=== PATIENT | male | born 1995 | race African-American/Black ===

== ENCOUNTER 2017-11-24 14:42 | Emergency (ER) | payer OTHER ==
[2017-11-24 15:01] VITALS: BP 142/83
--- NOTE | 2017-11-24 15:20 | XRAY Preliminary Report ---
Exam: XR HAND 3 VIEW RT IMPRESSION: Fifth metacarpal fracture. [facility] SITE ID: [id number]
--- NOTE | 2017-11-24 15:31 | ED Physician Documentation ---
PD HPI UPPER EXT INJURY - Stated complaint Stated Complaint: R HAND INJ - Chief complaint Chief Complaint: Ext Problem - History obtained from History obtained from: Patient - History of Present Illness Location: Right, Hand Type of injury: Crush (caught in car door) Where injury occurred: Work Timing - onset: Yesterday Timing - details: Abrupt onset, Still present Worsened by: Moving, Palpating Associated symptoms: Swelling. No: Weakness, Numbness Similar symptoms before: Has not had sx before Recently seen: Not recently seen Review of Systems Skin: denies: Abrasion (s), Laceration (s) Neurologic: denies: Focal weakness, Numbness PD PAST MEDICAL HISTORY - Past Medical History Cardiovascular: None Respiratory: None Musculoskeletal: None - Present Medications Home Medications: Ambulatory Orders Medication Instructions Recorded Confirmed Ibuprofen [Motrin] 600 mg PO TID #25 tab 11/24/17 - Allergies Allergies/Adverse Reactions: Allergies Allergy/AdvReac Type Severity Reaction Status Date / Time No Known Drug Allergies Allergy Verified 11/24/17 15:00 PD ED PE NORMAL - Vitals Vital signs reviewed: Yes - General General: Alert and oriented X 3, No acute distress, Well developed/nourished - Derm Derm: Normal color, Warm and dry - Extremities Extremities: Other (right hand tender over 5th MC area with focal swelling. Able to flex finger without malrotation. Normal color and cap refill in fingers. ) - Neuro Neuro: No motor deficit, No sensory deficit Results - Vitals Vitals: Vital Signs - 24 hr 11/24/17 14:59 Temperature 36.5 C Heart Rate 77 Respiratory 14 Rate Blood Pressure 142/83 H O2 Saturation 100 Oxygen O2 Source Room air - Rads (name of study) right hand Radiology: Prelim report reviewed (5th MC fracture at neck, minimally angulated. ), EMP read contemporaneously Procedures - Splint (location) right hand Splint applied by: Nurse Type of splint: Fiberglass, Ulnar gutter Other: Patient tolerated well, No complications, Neurovascular intact PD MEDICAL DECISION MAKING - ED course Complexity details: reviewed results (5th MC fracture, minimally angulated), considered differential, d/w patient Departure - Departure Disposition: 01 Home, Self Care Clinical Impression: Crush injury of hand Qualifiers: Encounter type: initial encounter Laterality: right Qualified Code(s): S67.21XA - Crushing injury of right hand, initial encounter Fracture of fifth metacarpal bone Qualifiers: Encounter type: initial encounter Fracture type: closed Metacarpal location: neck Fracture alignment: nondisplaced Laterality: right Qualified Code(s): S62.366A - Nondisplaced fracture of neck of fifth metacarpal bone, right hand, initial encounter for closed fracture Condition: Stable Record reviewed to determine appropriate education?: Yes Instructions: ED Fx Boxer, ED Splint Care Fiberglass Follow-Up: [facility] [Provider Group] Prescriptions: Ibuprofen [Motrin] 600 mg PO TID #25 tab Comments: Keep the splint on the hand to protect it while its initially healing. He will need some protective support for about 4 weeks. Recheck with your primary care in 3-5 days after the swelling is gone down as the splint will not for quite as well and likely need replacing. Light use with that hand for 4 weeks. Ibuprofen 3 times a day and add Tylenol if needed. Call for follow-up appointment. Forms: Activity restrictions Discharge Date/Time: 11/24/17 15:57
--- NOTE | 2017-11-24 15:31 | XRAY Report ---
EXAM: RIGHT HAND RADIOGRAPHY EXAM DATE: 11/24/2017 03:14 PM. CLINICAL HISTORY: Pain since slamming the hand in car door 3 days ago. COMPARISON: None. TECHNIQUE: 3 views. FINDINGS: Bones: Acute transverse fracture distal metadiaphysis fifth metacarpal, 40 degree dorsal angulation a t the fracture site. Joints: Normal. No subluxations. Soft Tissues: Marked edema adjacent to the fracture. IMPRESSION: Fifth metacarpal fracture. [facility] Referring Provider Line: [phone] SITE ID: [id number]
[2017-11-24] MEDS ORDERED: IBUPROFEN 600 MG TABLET PO STA (15:44)
== END 2017-11-24 15:57 | disposition home or self-care (01) ==
LOC: ED 14:42
DX: S67.21XA Crushing injury of right hand, initial encounter (principal); S62.366A Nondisplaced fracture of neck of fifth metacarpal bone, right hand, initial encounter for closed fracture; W23.0XXA Caught, crushed, jammed, or pinched between moving objects, initial encounter; Y99.0 Civilian activity done for income or pay
CPT/HCPCS: 29125; 73130; 99283; A9270

== ENCOUNTER 2019-02-15 08:14 | Emergency (ER) | payer OTHER ==
[2019-02-15 08:35] VITALS: BP 170/85
[2019-02-15] MEDS ORDERED: METHOCARBAMOL 500 MG TABLET PO STA (09:00)
[2019-02-15] MEDS ORDERED: NAPROXEN 250 MG TABLET PO STA (09:00)
[2019-02-15] MEDS ORDERED: ACETAMINOPHEN 325 MG TABLET PO STA (09:00)
--- NOTE | 2019-02-15 09:28 | XRAY Report ---
Reason: dyspnea/ cough Procedure Date: 02/15/2019 Accession Number: [id number] / [id number] Procedure: XR - Chest 2 View X-Ray CPT Code: 94612 FULL RESULT: EXAM: CHEST RADIOGRAPHY EXAM DATE: 02/15/2019 09:09 AM. CLINICAL HISTORY: Dyspnea/ cough. COMPARISON: None. TECHNIQUE: 2 views. FINDINGS: Lungs/Pleura: No focal opacities evident. No pleural effusion. No pneumothorax. Normal volumes. Mediastinum: Heart and mediastinal contours are unremarkable. Other: None. IMPRESSION: Normal 2-view chest radiography. [facility]
--- NOTE | 2019-02-15 09:32 | ED Physician Documentation ---
PD HPI CHEST PAIN - Stated complaint Stated Complaint: CP/BACK PAIN - Chief complaint Chief Complaint: Back Pain - History obtained from History obtained from: Patient - History of Present Illness Timing - onset: How many days ago (4) Timing - onset during: Light activity Timing - duration: Days (4) Timing - details: Gradual onset (Noted his back hurting when he awoke from bed and has been hurting with range of motion and deep breathing over the last few days. He had been in a motel for work for an overnight and thought it was the different mattress. He is now back home however and still having pains with movement and breathing. He denies any numbness. He denies any injury change in activity or heavy lifting. The pain started in the mid thoracic back and is now into the sternal area.), Waxing and waning Quality: Aching, Pain Location: Upper back (feels started in back and now going to sternal chest area) Radiation: Back Improved by: Rest Worsened by: Exertion, Movement. No: Inspiration Associated symptoms: No: Shortness of air, Nausea, Feeling faint / dizzy, General Weakness, Palpitations, Cough Similar symptoms before: Has not had sx before Recently seen: Not recently seen Review of Systems Constitutional: denies: Fever, Chills Nose: denies: Rhinorrhea / runny nose, Congestion Throat: denies: Sore throat Cardiac: reports: Chest pain / pressure. denies: Palpitations Respiratory: denies: Dyspnea, Cough, Wheezing Skin: denies: Rash, Lesions Musculoskeletal: reports: Back pain. denies: Neck pain PD PAST MEDICAL HISTORY - Past Medical History Past Medical History: No Cardiovascular: None Respiratory: None Neuro: None Endocrine/Autoimmune: None Musculoskeletal: None - Past Surgical History Past Surgical History: No - Present Medications Home Medications: Ambulatory Orders Medication Instructions Recorded Confirmed Methocarbamol [Robaxin] 500 mg PO Q6H PRN #30 tablet 02/15/19 RX: Naproxen 500 mg PO BID #20 tablet 02/15/19 RX: Tramadol HCl 50 mg PO Q6H PRN #20 tablet 02/15/19 - Allergies Allergies/Adverse Reactions: Allergies Allergy/AdvReac Type Severity Reaction Status Date / Time No Known Drug Allergies Allergy Verified 02/15/19 08:35 - Living Situation Living Arrangement: reports: At home - Social History Does the pt smoke?: No Smoking Status: Never smoker Does the pt drink ETOH?: No Does the pt have substance abuse?: No - Family History Family history: reports: Non contributory. denies: CAD, Aortic dissection - Immunizations Immunizations are current?: Yes - POLST Patient has POLST: No PD ED PE NORMAL - Vitals Vital signs reviewed: Yes - General General: Alert and oriented X 3, No acute distress, Well developed/nourished - HEENT HEENT: Moist mucous membranes, Pharynx benign - Neck Neck: Supple, no meningeal sign, No adenopathy - Cardiac Cardiac: RRR, No murmur - Respiratory Respiratory: Clear bilaterally - Abdomen Abdomen: Normal bowel sounds, Soft - Back Back: No CVA TTP, No spinal TTP (but some tenderness mid scapular muscles. ) - Derm Derm: Normal color, Warm and dry, No rash Results - Vitals Vitals: Oxygen O2 Source Room air - EKG (time done) arrival Rhythm: NSR Annabella: Normal Intervals: Normal VT QRS: Normal Ischemia: Normal ST segments. No: ST elevation c/w ischemia, ST depression - Rads (name of study) chest xray Radiology: Prelim report reviewed (no acute process), See rad report PD MEDICAL DECISION MAKING - ED course Complexity details: considered differential (Likely musculoskeletal from back now into chest area. Will eval CXR, ECG, labs to ensure not other cause. ), d/w patient Departure - Departure Disposition: 01 Home, Self Care Clinical Impression: Acute thoracic back pain Qualifiers: Back pain laterality: midline Qualified Code(s): M54.6 - Pain in thoracic spine Condition: Stable Record reviewed to determine appropriate education?: Yes Instructions: ED Sprain Thoracic Spine Follow-Up: [facility] [Provider Group] Prescriptions: Methocarbamol [Robaxin] 500 mg PO Q6H PRN #30 tablet PRN Reason: Spasms RX: Naproxen 500 mg PO BID #20 tablet RX: Tramadol HCl 50 mg PO Q6H PRN #20 tablet PRN Reason: Pain Comments: Your EKG and chest x-ray are normal. This sounds like musculoskeletal pain. I would have you try the naproxen twice daily for the next 7 to 10 days with food. Add Robaxin muscle relaxant periodically 2-3 times a day to see if there is some muscular spasm or stiffness component. Add Tylenol or tramadol as needed for pain. Limited duty with no heavy lifting or heavy use for the next 2 to 3 days. Follow-up with your primary if not better over the next several days. Forms: Activity restrictions Discharge Date/Time: 02/15/19 09:45
== END 2019-02-15 09:45 | disposition home or self-care (01) ==
LOC: ED 08:14
DX: M54.6 Pain in thoracic spine (principal)
CPT/HCPCS: 71046; 93005; 99283; 99284; A9270

== ENCOUNTER 2019-12-29 03:55 | Emergency (ER) | payer OTHER ==
--- NOTE | 2019-12-29 04:02 | ED Physician Documentation ---
PD HPI DYSPNEA - Stated complaint Stated Complaint: SOA/WHEEZING - Chief complaint Chief Complaint: Resp - History obtained from History obtained from: Patient - History of Present Illness Timing - onset: How many hours ago (3) Timing - onset during: Sleep Timing - duration: Hours Timing - details: Abrupt onset, Constant Pain level max: 0 Pain level now: 0 Improved by: Rest Worsened by: Exertion Associated symptoms: Wheezing. No: Fever, Cough, Hemoptysis, Chest pain / discomfort, Palpitations, Bilateral edema, Unilateral edema Similar symptoms before: No diagnosis Recently seen: Not recently seen Review of Systems Constitutional: reports: Reviewed and negative Ears: reports: Ear pain, Drainage/discharge Nose: reports: Rhinorrhea / runny nose, Congestion, Epistaxis Throat: denies: Sore throat Cardiac: reports: Reviewed and negative Respiratory: reports: Dyspnea, Cough, Wheezing. denies: Hemoptysis GI: reports: Reviewed and negative Skin: denies: Rash Musculoskeletal: denies: Extremity swelling PD PAST MEDICAL HISTORY - Past Medical History Cardiovascular: None Respiratory: None Neuro: None Endocrine/Autoimmune: None Musculoskeletal: None - Past Surgical History Past Surgical History: No - Present Medications Home Medications: Ambulatory Orders Medication Instructions Recorded Confirmed Naproxen 500 mg PO BID #20 tablet 02/15/19 Tramadol HCl 50 mg PO Q6H PRN #20 tablet 02/15/19 methocarbamoL [Robaxin] 500 mg PO Q6H PRN #30 tablet 02/15/19 Albuterol Sulf [Ventolin Hfa 1 - 2 puffs INH Q4HR PRN #1 inhaler 12/29/19 Inhaler] predniSONE [Prednisone] 40 mg PO DAILY 3 Days #6 tablet 12/29/19 - Allergies Allergies/Adverse Reactions: Allergies Allergy/AdvReac Type Severity Reaction Status Date / Time No Known Drug Allergies Allergy Verified 12/29/19 03:58 - Social History Does the pt smoke?: No Smoking Status: Never smoker Does the pt drink ETOH?: No Does the pt have substance abuse?: No - Immunizations Immunizations are current?: Yes - POLST Patient has POLST: No PD ED PE NORMAL - Vitals Vital signs reviewed: Yes - General General: Alert and oriented X 3, No acute distress, Well developed/nourished, Other (wheezing audible standing at bedside) - Neck Neck: Supple, no meningeal sign - Cardiac Cardiac: RRR, No murmur, No gallop, No rub - Respiratory Respiratory: No respiratory distress - Abdomen Abdomen: Soft, Non tender - Derm Derm: Normal color, Warm and dry, No rash - Extremities Extremities: No edema PD ED PE EXPANDED - Cardiac Cardiac: Regular Rate, Regular Rhythm - Respiratory Respiratory: Wheezing, Decreased breath sounds (bilaerally all lung ortiz), Other (prolonged expiratory phase) Results - Vitals Vitals: Vital Signs - 24 hr 12/29/19 12/29/19 12/29/19 03:58 04:06 04:14 Temperature 36.3 C L Heart Rate 119 H 113 H 108 H Respiratory 26 H 26 H 16 Rate Blood Pressure 157/113 H 156/108 H O2 Saturation 96 96 12/29/19 12/29/19 04:30 05:00 Temperature Heart Rate 120 H 119 H Respiratory 22 20 Rate Blood Pressure 157/111 H 158/102 H O2 Saturation 99 99 Oxygen O2 Source Room air - Labs Labs: Laboratory Tests 12/29/19 12/29/19 12/29/19 04:17 04:17 04:17 WBC RBC Hgb Hct MCV MCH MCHC RDW Plt Count MPV Neut # (Auto) Lymph # (Auto) Hoke # (Auto) Eos # (Auto) Baso # (Auto) Absolute Nucleated RBC Nucleated RBC % D-Dimer 215.2 Sodium 137 Potassium 4.1 Chloride 101 Carbon Dioxide 25 Anion Gap 11.0 BUN 11 Creatinine 0.9 Estimated GFR (MDRD) 124 Glucose 108 H Calcium 9.5 Total Bilirubin 0.3 AST 28 ALT 59 Alkaline Phosphatase 65 B-Natriuretic Peptide 19 Total Protein 8.2 Albumin 4.5 Globulin 3.7 Albumin/Globulin Ratio 1.2 Lipase 32 12/29/19 05:10 WBC 9.7 RBC 5.33 Hgb 14.9 Hct 46.0 MCV 86.3 MCH 28.0 MCHC 32.4 RDW 12.5 Plt Count 304 MPV 9.1 Neut # (Auto) 5.7 Lymph # (Auto) 2.7 Hoke # (Auto) 1.0 Eos # (Auto) 0.2 Baso # (Auto) 0.1 Absolute Nucleated RBC 0.00 Nucleated RBC % 0.0 D-Dimer Sodium Potassium Chloride Carbon Dioxide Anion Gap BUN Creatinine Estimated GFR (MDRD) Glucose Calcium Total Bilirubin AST ALT Alkaline Phosphatase B-Natriuretic Peptide Total Protein Albumin Globulin Albumin/Globulin Ratio Lipase - Rads (name of study) cxr Radiology: Prelim report reviewed, See rad report PD MEDICAL DECISION MAKING - ED course Complexity details: reviewed results, re-evaluated patient, considered differential, d/w patient ED course: n reevaluation after duoneb, 2 albuterol nebs, and iv solumedrol, he reported significant improvement and had complete resolution of his wheezing and prolonged expiratory phase, 98% pulse ox, discharged with rx for albuterol MDI and short course of prednisone. Departure - Departure Disposition: 01 Home, Self Care Clinical Impression: Dyspnea Condition: Good Instructions: ED Reactive Airway Disease Follow-Up: ALTAF TUCKER MD [Primary Care Provider] - Prescriptions: Albuterol Sulf [Ventolin Hfa Inhaler] 1 - 2 puffs INH Q4HR PRN #1 inhaler PRN Reason: Shortness Of Air/Wheezing predniSONE [Prednisone] 40 mg PO DAILY 3 Days #6 tablet Discharge Date/Time: 12/29/19 05:42
[2019-12-29] MEDS ORDERED: IPRATROPIUM/ALBUTEROL 3 ML NEB INH STA (04:08)
[2019-12-29] MEDS ORDERED: methylPREDNISolone SUCCINATE 125 MG/2 ML VIAL IVP STA (04:08)
[2019-12-29] MEDS ORDERED: ALBUTEROL NEB 2.5 MG/3 ML INH ONE (04:26)
[2019-12-29] MEDS: ALBUTEROL NEB 2.5 MG/3 ML INH STA (04:28)
[2019-12-29] MEDS ORDERED: ALBUTEROL NEB 2.5 MG/3 ML INH STA (04:29)
[2019-12-29 04:39] LABS: ALBUMIN 4.5 g/dL (3.2-5.5); ALBUMIN/GLOBULIN RATIO 1.2 (1.0-2.2); BILIRUBIN,TOTAL 0.3 mg/dL (0.2-1.0); CALCIUM 9.5 mg/dL (8.5-10.3); CREATININE 0.9 mg/dL (0.6-1.2); TOTAL PROTEIN 8.2 g/dL (6.7-8.2)
[2019-12-29 05:16] LABS: BASOPHILS # (AUTO) 0.1 10^3/uL (0.0-0.1); BASOPHILS % (AUTO) 0.6 %; EOSINOPHILS # (AUTO) 0.2 10^3/uL (0.0-0.7); EOSINOPHILS % (AUTO) 1.8 %; HGB - HEMOGLOBIN 14.9 g/dL (14.0-18.0); LYMPHOCYTES # (AUTO) 2.7 10^3/uL (1.5-3.5); LYMPHOCYTES % (AUTO) 28.3 %; MEAN CORPUSCULAR HGB CONC 32.4 g/dL (32.0-36.0); MEAN CORPUSCULAR VOLUME 86.3 fL (80.0-94.0); MEAN PLATELET VOLUME 9.1 fL (7.4-11.4); MONOCYTES % (AUTO) 10.1 %; NEUTROPHILS # (AUTO) 5.7 10^3/uL (1.5-6.6); NEUTROPHILS % (AUTO) 58.7 %; PLT - PLATELET COUNT 304 10^3/uL (130-450); RED BLOOD COUNT 5.33 10^6/uL (4.70-6.10); RED CELL DISTRIBUTION WIDTH 12.5 % (12.0-15.0); WHITE BLOOD COUNT 9.7 x10^3/uL (4.8-10.8)
[2019-12-29 05:19] VITALS: BP 158/102
--- NOTE | 2019-12-29 08:29 | XRAY Report ---
PROCEDURE: Chest 1 View X-Ray INDICATIONS: dyspnea TECHNIQUE: One view of the chest was acquired. COMPARISON: 02/15/2019 FINDINGS: Surgical changes and devices: None. Lungs and pleura: No pleural effusions or pneumothorax. Lungs are clear. Mediastinum: Mediastinal contours appear normal. Heart size is normal. Bones and chest wall: No suspicious bony lesions. Overlying soft tissues appear unremarkable. IMPRESSION: No acute cardiopulmonary pathology. No discrepancies. Reviewed by: Jose A Clemente MD on 12/29/2019 8:27 AM PDT Approved by: Jose A Clemente MD on 12/29/2019 8:27 AM PDT Station ID: [id number]
== END 2019-12-29 05:42 | disposition home or self-care (01) ==
LOC: ED 03:55
DX: R06.00 Dyspnea, unspecified (principal); R06.2 Wheezing
CPT/HCPCS: 36415; 71045; 80053; 83690; 83880; 85025; 85379; 94640; 94664; 96374; 99284